=== PATIENT | male | born 1990 | race Two or more races ===

== ENCOUNTER 2017-06-11 23:22 | Inpatient (IN) | payer MEDICAID ==
--- NOTE | 2017-06-12 00:16 | EDPHY ---
H & P Stated Complaint: LUQ pain X 2 days Time Seen by Provider: 06/12/17 00:16 HPI/ROS: HPI: This is a 26-year-old male presents with Chief Complaint: LUQ pain X 2 days Location: Left upper quadrant Quality: Sharp burning pain Duration: 2 days Signs and Symptoms: no fever, + nausea, no vomiting, no hematemesis, no blood in stool, no abdominal bloating, no diarrhea, no back pain, no urinary symptoms , no testicular/groin pain, no indigestion, + chest pain, no shortness of breath Timing: Acute, constant Severity: 05/26 Context: Patient recently moved to the area from [place] and is homeless. He called EMS this evening as he had severe epigastric and left upper quadrant pain that was constant, nonradiating. He reports that he felt like he was going to . He drinks liquor and beer daily. Does not use NSAIDs. Has noticed in the past burning and belching after binge drinking and certain foods. Denies hematemesis/blood in the stool. Denies shortness of breath/fever /cough. Patient did eat today. Denies recreational drug use. Will not tell me when his last drink was. Please note that upon arrival, patient told nurse that he hurt all over his body. It was only after I came into the room that he localized the pain to the left upper quadrant/left lateral anterior chest. Denies palpitations/shortness of breath. Modifying Factors: Patient given fentanyl on route by EMS Comment: ROS: see HPI Constitutional: No fever, no chills, no weight loss Eyes: No blurred vision Respiratory: No shortness of breath, no cough Cardiovascular: No chest pain, no palpitations Gastrointestinal: + nausea, no vomiting, no diarrhea, no hematemesis, no blood in stool Genitourinary: No dysuria, no blood in urine Extremities: No myalgias, no edema Neurologic: No weakness, no numbness Skin: No rashes, no petechiae Hematologic: No bruising, no bleeding MEDICAL/SURGICAL/SOCIAL HISTORY: Medical history: Generally healthy. Does not take any regular medications. Surgical history: Denies Social history: Homeless CONSTITUTIONAL: awake and alert, no obvious distress HEENT: Atraumatic and normocephalic, PERRL, EOMI. Tympanic membranes clear. Oropharynx clear, no exudate and moist pink mucosa. Airway patent. No lymphadenopathy. No meningismus. Cardiovascular: Normal S1/S2, regular rate, regular rhythm, without murmur rub or gallop. PULMONARY/CHEST: Symmetrical and left lower rib tenderness. Clear to auscultation bilaterally. average air movement. No accessory muscle usage. ABDOMEN: Soft, nondistended, moderate epigastric tenderness, no rebound, no guarding, no peritoneal signs, no masses or organomegaly. No CVAT. EXTREMITIES: 2/2 pulses, strength 5/5, no deformities, no clubbing, no cyanosis or edema. NEUROLOGICAL: no focal neuro deficits. GCS 15. SKIN: Warm and dry, no erythema. no rash. Good capillary refill. Source: Patient - Personal History Current Tetanus/Diphtheria Vaccine: Yes Current Tetanus Diphtheria and Acellular Pertussis (TDAP): Yes - Medical/Surgical History Hx Asthma: Yes Hx Chronic Respiratory Disease: No Hx Diabetes: No Hx Cardiac Disease: No Hx Renal Disease: No Hx Cirrhosis: No Hx Alcoholism: Yes Hx HIV/AIDS: No Hx Splenectomy or Spleen Trauma: No - Social History Smoking Status: Heavy smoker Constitutional: Initial Vital Signs Temperature (C) 36.5 C 06/11/17 23:32 Heart Rate 91 06/11/17 23:32 Respiratory Rate 16 06/11/17 23:32 Blood Pressure 139/84 H 06/11/17 23:32 O2 Sat (%) 95 06/11/17 23:32 O2 Delivery Mode Nasal Cannula O2 (L/minute) 2 Allergies/Adverse Reactions: No Known Allergies Allergy (Unverified 06/11/17 23:31) Home Medications: Medication Instructions Recorded NK [No Known Home Meds] 06/11/17 Medical Decision Making ED Course/Re-evaluation: Labs, IV fluids, chest x-ray, IV medications ordered O2 sats 95% on room air upon arrival Given 2 L normal saline, IV Pepcid. Will evaluate for alcoholic gastritis/pancreatitis/pulmonary embolism/pneumonia Does not meet initial sepsis screening criteria upon arrival. 1314: Labs reviewed and show no signs of anemia/elevated LFTs/pancreatitis/ electrolyte imbalance/acute kidney injury/pulmonary embolism 1320: Review chest x-ray via PACs with attending which shows pneumothorax. ED decision to consult for admission. Spoke with Dr. Guy who advised he will be in to assess the patient and provide further care. Reassessed patient who reports that he is a tobacco user denies any trauma/ injury. Differential Diagnosis: Abdominal pain including but not limited to appendicitis, cholecystitis, gastritis and urinary tract infection. - Data Points Laboratory Results: Laboratory Results 06/12/17 00:42 06/12/17 00:22 06/12/17 06/12/17 06/12/17 00:42 00:42 00:22 WBC 11.28 10^3/uL H 10^3/uL (3.80-9.50) RBC 4.10 10^6/uL L 10^6/uL (4.40-6.38) Hgb 14.1 g/dL g/dL (13.7-17.5) Hct 40.6 % % (40.0-51.0) MCV 99.0 fL fL (81.5-99.8) MCH 34.4 pg H pg (27.9-34.1) MCHC 34.7 g/dL g/dL (32.4-36.7) RDW 12.0 % % (11.5-15.2) Plt Count 207 10^3/uL 10^3/uL (150-400) MPV 10.3 fL fL (8.7-11.7) Neut % (Auto) 76.0 % H % (39.3-74.2) Lymph % (Auto) 16.4 % % (15.0-45.0) Amelia % (Auto) 5.7 % % (4.5-13.0) Eos % (Auto) 1.1 % % (0.6-7.6) Baso % (Auto) 0.4 % % (0.3-1.7) Nucleat RBC Rel Count 0.0 % % (0.0-0.2) Absolute Neuts (auto) 8.58 10^3/uL H 10^3/uL (1.70-6.50) Absolute Lymphs (auto) 1.85 10^3/uL 10^3/uL (1.00-3.00) Absolute Monos (auto) 0.64 10^3/uL 10^3/uL (0.30-0.80) Absolute Eos (auto) 0.12 10^3/uL 10^3/uL (0.03-0.40) Absolute Basos (auto) 0.05 10^3/uL 10^3/uL (0.02-0.10) Absolute Nucleated RBC 0.00 10^3/uL 10^3/uL (0-0.01) Immature Gran % 0.4 % % (0.0-1.1) Immature Gran # 0.04 10^3/uL 10^3/uL (0.00-0.10) D-Dimer < 0.27 ug/mLFEU ug/mLFEU (0.00-0.50) Sodium 140 mEq/L mEq/L (134-144) Potassium 4.4 mEq/L mEq/L (3.5-5.2) Chloride 104 mEq/L mEq/L (97-110) Carbon Dioxide 21 mEq/l L mEq/l (22-31) Anion Gap 15 mEq/L mEq/L (8-16) BUN 14 mg/dL mg/dL (7-23) Creatinine 0.9 mg/dL mg/dL (0.7-1.3) Estimated GFR > 60 Glucose 103 mg/dL H mg/dL (70-100) Calcium 9.6 mg/dL mg/dL (8.5-10.4) Total Bilirubin 0.7 mg/dL mg/dL (0.1-1.4) Conjugated Bilirubin 0.3 mg/dL mg/dL (0.0-0.5) Unconjugated Bilirubin 0.4 mg/dL mg/dL (0.0-1.1) AST 27 IU/L IU/L (17-59) ALT 29 IU/L IU/L (21-72) Alkaline Phosphatase 41 IU/L IU/L (38-126) Total Protein 7.1 g/dL g/dL (6.3-8.2) Albumin 4.3 g/dL g/dL (3.5-5.0) Lipase 72 IU/L IU/L (23-300) Salicylates < 1.0 mg/dL L mg/dL (2.0-20.0) Acetaminophen < 10 mcg/mL L mcg/mL (10-30) Ethyl Alcohol < 10 mg/dL mg/dL (0-10) 06/12/17 00:10 WBC REJ RBC TNP Hgb TNP Hct TNP MCV TNP MCH TNP MCHC TNP RDW TNP Plt Count TNP MPV TNP Neut % (Auto) TNP Lymph % (Auto) TNP Amelia % (Auto) TNP Eos % (Auto) TNP Baso % (Auto) TNP Nucleat RBC Rel Count TNP Absolute Neuts (auto) TNP Absolute Lymphs (auto) TNP Absolute Monos (auto) TNP Absolute Eos (auto) TNP Absolute Basos (auto) TNP Absolute Nucleated RBC TNP Immature Gran % TNP Immature Gran # TNP D-Dimer Sodium Potassium Chloride Carbon Dioxide Anion Gap BUN Creatinine Estimated GFR Glucose Calcium Total Bilirubin Conjugated Bilirubin Unconjugated Bilirubin AST ALT Alkaline Phosphatase Total Protein Albumin Lipase Salicylates Acetaminophen Ethyl Alcohol Medications Given: Discontinued Medications Sodium Chloride (Ns) 1,000 mls @ 0 mls/hr IV EDNOW ONE; Wide Open PRN Reason: Protocol Stop: 06/12/17 00:23 Last Admin: 06/12/17 00:28 Dose: 1,000 mls Sodium Chloride (Ns) 1,000 mls @ 0 mls/hr IV EDNOW ONE; Wide Open PRN Reason: Protocol Stop: 06/12/17 00:24 Last Admin: 06/12/17 00:29 Dose: 1,000 mls Famotidine/Sodium Chloride (Pepcid 20 Mg (Premix)) 50 mls @ 200 mls/hr IV EDNOW ONE Stop: 06/12/17 00:37 Last Admin: 06/12/17 00:28 Dose: 50 mls Departure - Departure Disposition: [facility] Acute Clinical Impression: Spontaneous pneumothorax
[2017-06-12] MEDS ORDERED: NS 1,000 ML IV ONE ×2 (00:22→00:23)
[2017-06-12] MEDS ORDERED: FAMOTIDINE 20 MG/NACL 50 ML IV ONE (00:23)
[2017-06-12 00:49] LABS: ALANINE AMINOTRANSFERASE 29 IU/L (21-72); ALBUMIN 4.3 g/dL (3.5-5.0); ALKALINE PHOSPHATASE 41 IU/L (38-126); ANION GAP 15 mEq/L (8-16); ASPARTATE AMINOTRANSFERASE 27 IU/L (17-59); BILIRUBIN,TOTAL 0.7 mg/dL (0.1-1.4); BILIRUBIN-CONJUGATED 0.3 mg/dL (0.0-0.5); BILIRUBIN-UNCONJUGATED 0.4 mg/dL (0.0-1.1); CALCIUM 9.6 mg/dL (8.5-10.4); CARBON DIOXIDE 21 mEq/l (22-31); CHLORIDE 104 mEq/L (97-110); CREATININE 0.9 mg/dL (0.7-1.3); ETHANOL SERUM < 10 mg/dL (0-10); GLOMERULAR FILTRATION RATE > 60; GLUCOSE 103 mg/dL (70-100); POTASSIUM 4.4 mEq/L (3.5-5.2); SALICYLATE < 1.0 mg/dL (2.0-20.0); SODIUM 140 mEq/L (134-144); TOTAL PROTEIN 7.1 g/dL (6.3-8.2)
[2017-06-12 01:10] LABS: % IMMATURE GRANULYOCYTES 0.4 % (0.0-1.1); ABSOLUTE IMMATURE GRANULOCYTES 0.04 10^3/uL (0.00-0.10); ADD DIFF? NO; ADD MORPH? NO; ADD SCAN? NO; ATYPICAL LYMPHOCYTE FLAG 0 (0-99); FRAGMENT RBC FLAG 0 (0-99); HEMATOCRIT 40.6 % (40.0-51.0); HEMOGLOBIN 14.1 g/dL (13.7-17.5); LEFT SHIFT FLG 0 (0-99); LIPEMIA HEMOLYSIS FLAG 90 (0-99); MEAN CELL HEMOGLOBIN 34.4 pg (27.9-34.1); MEAN CELL HEMOGLOBIN CONCENTR. 34.7 g/dL (32.4-36.7); MEAN PLATELET VOLUME 10.3 fL (8.7-11.7); PLATELET CLUMPS FLAG 0 (0-99); PLATELET COUNT 207 10^3/uL (150-400)
[2017-06-12] MEDS ORDERED: fentaNYL 100 MCG/2 ML INJ ONE (01:49)
[2017-06-12] MEDS ORDERED: fentaNYL 100 MCG/2 ML INJ IVP ONE (01:50)
[2017-06-12] MEDS ORDERED: ONDANSETRON 4 MG/2 ML VIAL IVP PRN (02:20)
[2017-06-12] MEDS ORDERED: LORazepam 2 MG/ML INJ IVP PRN ×2 (02:31→03:23)
[2017-06-12] MEDS: ACETAMINOPHEN 500 MG TAB PO SCH ×3 (03:17→17:31)
[2017-06-12 05:43] LABS: % IMMATURE GRANULYOCYTES 0.4 % (0.0-1.1); ABSOLUTE IMMATURE GRANULOCYTES 0.03 10^3/uL (0.00-0.10); ADD DIFF? NO; ADD MORPH? NO; ADD SCAN? NO; ATYPICAL LYMPHOCYTE FLAG 0 (0-99); FRAGMENT RBC FLAG 0 (0-99); HEMATOCRIT 36.3 % (40.0-51.0); HEMOGLOBIN 12.5 g/dL (13.7-17.5); LEFT SHIFT FLG 0 (0-99); LIPEMIA HEMOLYSIS FLAG 90 (0-99); MEAN CELL HEMOGLOBIN CONCENTR. 34.4 g/dL (32.4-36.7); MEAN CELL VOLUME 98.6 fL (81.5-99.8); MEAN PLATELET VOLUME 10.3 fL (8.7-11.7); PLATELET CLUMPS FLAG 0 (0-99); PLATELET COUNT 186 10^3/uL (150-400); RED BLOOD CELL COUNT 3.68 10^6/uL (4.40-6.38); RED CELL DISTRIBUTION WIDTH 11.9 % (11.5-15.2)
[2017-06-12 06:00] LABS: ALANINE AMINOTRANSFERASE 25 IU/L (21-72); ALBUMIN 3.4 g/dL (3.5-5.0); ALKALINE PHOSPHATASE 35 IU/L (38-126); AMYLASE < 30 IU/L (30-110); ANION GAP 9 mEq/L (8-16); ASPARTATE AMINOTRANSFERASE 20 IU/L (17-59); BILIRUBIN,TOTAL 0.6 mg/dL (0.1-1.4); BILIRUBIN-CONJUGATED 0.2 mg/dL (0.0-0.5); BILIRUBIN-UNCONJUGATED 0.4 mg/dL (0.0-1.1); CALCIUM 8.8 mg/dL (8.5-10.4); CARBON DIOXIDE 24 mEq/l (22-31); CHLORIDE 106 mEq/L (97-110); CREATININE 0.7 mg/dL (0.7-1.3); GLOMERULAR FILTRATION RATE > 60; GLUCOSE 104 mg/dL (70-100); MAGNESIUM 1.7 mg/dL (1.6-2.3); POTASSIUM 4.3 mEq/L (3.5-5.2); SODIUM 139 mEq/L (134-144); TOTAL PROTEIN 5.7 g/dL (6.3-8.2)
[2017-06-12] MEDS: KETOROLAC 30 MG/1 ML SDV IVP SCH ×3 (06:21→17:31)
[2017-06-12] MEDS: THIAMINE HCL 100 MG TAB PO SCH ×2 (06:21→08:28)
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
[2017-06-12] MEDS: MULTIVITAMINS 1 EACH TAB PO SCH (08:28)
[2017-06-12] MEDS: FOLIC ACID 1 MG TAB PO SCH (08:28)
[2017-06-12] MEDS: CYCLOBENZAPRINE 10 MG TAB PO PRN (19:56)
[2017-06-13] MEDS: ACETAMINOPHEN 500 MG TAB PO SCH ×3 (03:55→17:58)
[2017-06-13 05:15] LABS: % IMMATURE GRANULYOCYTES 0.3 % (0.0-1.1); ABSOLUTE IMMATURE GRANULOCYTES 0.02 10^3/uL (0.00-0.10); ADD DIFF? NO; ADD MORPH? NO; ADD SCAN? NO; ATYPICAL LYMPHOCYTE FLAG 0 (0-99); FRAGMENT RBC FLAG 0 (0-99); HEMATOCRIT 36.3 % (40.0-51.0); HEMOGLOBIN 12.4 g/dL (13.7-17.5); LEFT SHIFT FLG 0 (0-99); LIPEMIA HEMOLYSIS FLAG 90 (0-99); MEAN CELL HEMOGLOBIN 34.2 pg (27.9-34.1); MEAN CELL HEMOGLOBIN CONCENTR. 34.2 g/dL (32.4-36.7); MEAN PLATELET VOLUME 10.5 fL (8.7-11.7); PLATELET CLUMPS FLAG 10 (0-99); PLATELET COUNT 183 10^3/uL (150-400); RED BLOOD CELL COUNT 3.63 10^6/uL (4.40-6.38); RED CELL DISTRIBUTION WIDTH 12.1 % (11.5-15.2)
[2017-06-13 05:35] LABS: ANION GAP 10 mEq/L (8-16); CALCIUM 8.7 mg/dL (8.5-10.4); CARBON DIOXIDE 27 mEq/l (22-31); CHLORIDE 107 mEq/L (97-110); CREATININE 0.8 mg/dL (0.7-1.3); GLOMERULAR FILTRATION RATE > 60; GLUCOSE 90 mg/dL (70-100); MAGNESIUM 1.9 mg/dL (1.6-2.3); SODIUM 144 mEq/L (134-144)
[2017-06-13] MEDS: KETOROLAC 30 MG/1 ML SDV IVP SCH ×5 (06:03→23:51)
[2017-06-13] MEDS: FOLIC ACID 1 MG TAB PO SCH (09:39)
[2017-06-13] MEDS: CYCLOBENZAPRINE 10 MG TAB PO PRN ×3 (09:39→21:12)
[2017-06-13] MEDS: MULTIVITAMINS 1 EACH TAB PO SCH (09:39)
--- NOTE | 2017-06-13 13:36 | TRAUMAPN ---
Assessment/Plan: PAD#2 06/13/2017 Assessment: Small apical PTX. No air leak. Chest tube in place but off suction. CIWA OK Plan: F/u chest xray in AM Try to wean meds. Subjective: no complaints Objective: Vital Signs Temp Pulse Resp BP Pulse Ox 36.7 C 68 16 111/52 L 97 06/13/17 12:07 06/13/17 12:07 06/13/17 12:07 06/13/17 12:07 06/13/17 12:07 Laboratory Results 06/13/17 04:31 06/13/17 04:31 06/12/17 06/13/17 06/14/17 05:59 05:59 05:59 Intake Total 2250 2550 Output Total 500 1350 Balance 1750 1200 Physical Exam - Physical Exam General Appearance: WD/WN, alert Respiratory: lungs clear Cardiac/Chest: regular rate, rhythm Time Spent w/Patient (minutes): 15
[2017-06-13] MEDS: HYDROmorphONE/DILAUDID 2 MG TAB PO PRN (14:39)
[2017-06-14] MEDS: ACETAMINOPHEN 500 MG TAB PO SCH ×4 (02:55→18:16)
[2017-06-14 05:23] LABS: % IMMATURE GRANULYOCYTES 0.3 % (0.0-1.1); ABSOLUTE IMMATURE GRANULOCYTES 0.02 10^3/uL (0.00-0.10); ADD DIFF? NO; ADD MORPH? NO; ADD SCAN? NO; ATYPICAL LYMPHOCYTE FLAG 10 (0-99); FRAGMENT RBC FLAG 0 (0-99); HEMATOCRIT 36.5 % (40.0-51.0); HEMOGLOBIN 12.5 g/dL (13.7-17.5); LEFT SHIFT FLG 0 (0-99); LIPEMIA HEMOLYSIS FLAG 90 (0-99); MEAN CELL HEMOGLOBIN 34.1 pg (27.9-34.1); MEAN CELL HEMOGLOBIN CONCENTR. 34.2 g/dL (32.4-36.7); MEAN CELL VOLUME 99.5 fL (81.5-99.8); MEAN PLATELET VOLUME 10.2 fL (8.7-11.7); PLATELET CLUMPS FLAG 0 (0-99); PLATELET COUNT 196 10^3/uL (150-400); RED BLOOD CELL COUNT 3.67 10^6/uL (4.40-6.38); RED CELL DISTRIBUTION WIDTH 12.1 % (11.5-15.2)
[2017-06-14 05:44] LABS: ANION GAP 8 mEq/L (8-16); CALCIUM 9.3 mg/dL (8.5-10.4); CARBON DIOXIDE 30 mEq/l (22-31); CHLORIDE 105 mEq/L (97-110); CREATININE 0.9 mg/dL (0.7-1.3); GLOMERULAR FILTRATION RATE > 60; GLUCOSE 86 mg/dL (70-100); MAGNESIUM 1.9 mg/dL (1.6-2.3); POTASSIUM 4.2 mEq/L (3.5-5.2); SODIUM 143 mEq/L (134-144)
[2017-06-14] MEDS: KETOROLAC 30 MG/1 ML SDV IVP SCH ×3 (06:33→18:15)
[2017-06-14] MEDS: CYCLOBENZAPRINE 10 MG TAB PO PRN ×2 (08:10→20:20)
[2017-06-14] MEDS: THIAMINE HCL 100 MG TAB PO SCH (08:10)
[2017-06-14] MEDS: MULTIVITAMINS 1 EACH TAB PO SCH (08:10)
[2017-06-14] MEDS: FOLIC ACID 1 MG TAB PO SCH (08:10)
--- NOTE | 2017-06-14 11:34 | TRAUMAPN ---
Assessment/Plan: PAD#2 06/13/2017 Assessment: Small apical PTX. No air leak. Chest tube in place but off suction. CIWA OK Plan: F/u chest xray in AM Try to wean meds. PAD#3 06/14/2017 Assessment: Apical PTX stable and small. Minimal fluid in chest. Chest tube removed and about 20cc of serosanguineous fluid came out in/with tube. Plan: F/u CXR in AM Subjective: no complaints Objective: Vital Signs Temp Pulse Resp BP Pulse Ox 36.4 C 66 17 125/68 H 95 06/14/17 07:43 06/14/17 07:43 06/14/17 07:43 06/14/17 07:43 06/14/17 07:43 Laboratory Results 06/14/17 04:58 06/14/17 04:58 06/13/17 06/14/17 06/15/17 05:59 05:59 05:59 Intake Total 2550 2760 Output Total 1350 62 Balance 1200 2698 Physical Exam - Physical Exam General Appearance: WD/WN, alert, no apparent distress Respiratory: chest non-tender, lungs clear, normal breath sounds Cardiac/Chest: regular rate, rhythm Abdomen: normal bowel sounds, non-tender, soft Male Genitalia: deferred Rectal: deferred Back: Normal inspection Skin: normal color Lymphatic: no adenopathy Extremities: normal range of motion Neuro/Psych: alert, normal mood/affect, oriented x 3 Time Spent w/Patient (minutes): 25
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
[2017-06-14] MEDS: HYDROmorphONE/DILAUDID 2 MG TAB PO PRN (20:20)
[2017-06-15] MEDS: KETOROLAC 30 MG/1 ML SDV IVP SCH ×3 (00:37→13:10)
[2017-06-15 04:17] VITALS: TEMP 98
[2017-06-15 04:27] LABS: % IMMATURE GRANULYOCYTES 0.4 % (0.0-1.1); ABSOLUTE IMMATURE GRANULOCYTES 0.02 10^3/uL (0.00-0.10); ADD DIFF? NO; ADD MORPH? NO; ADD SCAN? NO; ATYPICAL LYMPHOCYTE FLAG 0 (0-99); FRAGMENT RBC FLAG 0 (0-99); HEMATOCRIT 36.1 % (40.0-51.0); HEMOGLOBIN 12.3 g/dL (13.7-17.5); LEFT SHIFT FLG 0 (0-99); LIPEMIA HEMOLYSIS FLAG 90 (0-99); MEAN CELL HEMOGLOBIN 33.7 pg (27.9-34.1); MEAN CELL HEMOGLOBIN CONCENTR. 34.1 g/dL (32.4-36.7); MEAN CELL VOLUME 98.9 fL (81.5-99.8); MEAN PLATELET VOLUME 9.9 fL (8.7-11.7); PLATELET CLUMPS FLAG 0 (0-99); PLATELET COUNT 203 10^3/uL (150-400); RED BLOOD CELL COUNT 3.65 10^6/uL (4.40-6.38); RED CELL DISTRIBUTION WIDTH 11.9 % (11.5-15.2)
[2017-06-15] MEDS: ACETAMINOPHEN 500 MG TAB PO SCH ×2 (04:35→09:08)
[2017-06-15 04:37] LABS: INR 0.96 (0.83-1.16); PROTIME(PATIENT) 12.7 SEC (12.0-15.0)
[2017-06-15] MEDS: FOLIC ACID 1 MG TAB PO SCH (09:06)
[2017-06-15] MEDS: THIAMINE HCL 100 MG TAB PO SCH (09:06)
[2017-06-15] MEDS: MULTIVITAMINS 1 EACH TAB PO SCH (09:06)
--- NOTE | 2017-06-15 11:17 | TRAUMAPN ---
Assessment/Plan: PAD#2 06/13/2017 Assessment: Small apical PTX. No air leak. Chest tube in place but off suction. CIWA OK Plan: F/u chest xray in AM Try to wean meds. PAD#3 06/14/2017 Assessment: Apical PTX stable and small. Minimal fluid in chest. Chest tube removed and about 20cc of serosanguineous fluid came out in/with tube. Plan: F/u CXR in AM PAD#4 06/15/2017 Assessment: Lung up (tiny apical PTX stable). Set for discharge Plan: Discharge. Nicotine cessation stressed. Subjective: I feel much better Objective: Vital Signs Temp Pulse Resp BP Pulse Ox 36.7 C 67 16 121/69 H 96 06/15/17 04:00 06/15/17 04:00 06/15/17 04:00 06/15/17 04:00 06/15/17 04:00 Laboratory Results 06/15/17 04:14 06/14/17 04:58 06/14/17 06/15/17 06/16/17 05:59 05:59 05:59 Intake Total 2760 1700 Output Total 62 Balance 2698 1700 PT 12.7 SEC (12.0-15.0) 06/15/17 04:14 INR 0.96 (0.83-1.16) 06/15/17 04:14 Physical Exam - Physical Exam General Appearance: WD/WN, alert, no apparent distress Respiratory: chest non-tender, lungs clear, normal breath sounds Time Spent w/Patient (minutes): 15
[2017-06-15 11:35] VITALS: BP 119/66; PULSE 68; RESP 17; O2SAT 97
--- NOTE | 2017-06-15 12:15 | GDS ---
[f rep st] DISCHARGE SUMMARY DISCHARGE DIAGNOSES: 1. Spontaneous hemopneumothorax. 2. Bilateral apical blebs. 3. Nicotine use. CONDITION ON DISCHARGE: Improved. DISPOSITION: Home. DIET: Unrestricted. Texture is normal. MEDICATIONS AT DISCHARGE: For pain he is to take Tylenol 1000 mg every 8 hours as needed, and if he needs more pain control he may add 200 mg of Motrin every 6 hours. He is not having any pain issues at this point. FOLLOWUP: He will follow up with Dr. Gavin Rutherford or his office in 1 week for suture removal at his chest tube site. DISCHARGE INSTRUCTIONS: He is to limit his activity to gentle walking, and it is stressed that he is to use no nicotine in any form. HOSPITAL COURSE: The patient was admitted, and a chest tube was placed. His hemopneumothorax was treated successfully. His bloody pleural effusion did not reoccur. His chest x-ray is clear today, and he is set for discharge. /[id number]/MODL MTDD
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
== END 2017-06-15 13:22 | disposition home or self-care (01) | DRG 201 ==
LOC: F1N 06-12 03:17
PROVIDERS: ADMIT Surgery; ATTEND Surgery
PROC: 0W9B30Z Drainage of Left Pleural Cavity with Drainage Device, Percutaneous Approach (ICD-10-PCS; principal; 2017-06-12)
DX: J93.83 Other pneumothorax (principal); J43.9 Emphysema, unspecified; Z59.0 Homelessness; F17.210 Nicotine dependence, cigarettes, uncomplicated; F10.20 Alcohol dependence, uncomplicated; Y90.0 Blood alcohol level of less than 20 mg/100 ml
CPT/HCPCS: 80305; 96365; 97161-GP; 97165-GO; G0480; J1885; J2060; J3010